=== PATIENT | male | born 1980 | race Caucasian/White ===

== ENCOUNTER 2016-05-04 16:34 | Inpatient (IN) | payer OTHER ==
[~2016-05-04 16:34] MED LIST: ABILIFY2 MG PO; LEVAQUIN500 MG PO
[2016-05-04 17:16] LABS: HEMOGLOBIN 15.6 gm/dl (14.0-17.5); RED BLOOD COUNT 4.83 M/UL (4.20-5.50); WHITE BLOOD COUNT 22.3 K/UL (4.5-11.0)
[2016-05-05 04:41] LABS: HEMOGLOBIN 13.1 gm/dl (14.0-17.5); RED BLOOD COUNT 4.14 M/UL (4.20-5.50); WHITE BLOOD COUNT 12.2 K/UL (4.5-11.0)
[2016-05-06 03:55] LABS: HEMOGLOBIN 11.3 gm/dl (14.0-17.5); WHITE BLOOD COUNT 10.3 K/UL (4.5-11.0)
[2016-05-06 04:01] LABS: RED BLOOD COUNT 3.63 M/UL (4.20-5.50)
[2016-05-06 17:50] LABS: BUN/CREATININE RATIO 15 (0-10)
[2016-05-07 04:13] LABS: BUN/CREATININE RATIO 11 (0-10)
== END 2016-05-09 11:16 | DRG 917 ==
LOC: ER1 16:34 → CCU 20:30 → ZEROF 20:30 → CCU 23:15
PROVIDERS: Emergency Medicine; Hospitalist; Internal Medicine; Internal Medicine Nephrology; ADMIT Internal Medicine
PROC: 5A1945Z Respiratory Ventilation, 24-96 Consecutive Hours (ICD-10-PCS; principal; 2016-05-04)
PROC: 0BH17EZ Insertion of Endotracheal Airway into Trachea, Via Natural or Artificial Opening (ICD-10-PCS; principal; 2016-05-04)
PROC: 3E0G76Z Introduction of Nutritional Substance into Upper GI, Via Natural or Artificial Opening (ICD-10-PCS; 2016-05-05)
DX: T43.621A Poisoning by amphetamines, accidental (unintentional), initial encounter (principal); J96.90 Respiratory failure, unspecified, unspecified whether with hypoxia or hypercapnia; G92 Toxic encephalopathy; F19.921 Other psychoactive substance use, unspecified with intoxication with delirium; M62.82 Rhabdomyolysis; N17.9 Acute kidney failure, unspecified; E87.2 Acidosis; E87.0 Hyperosmolality and hypernatremia; T83.098A Other mechanical complication of other urinary catheter, initial encounter; T46.2X1A Poisoning by other antidysrhythmic drugs, accidental (unintentional), initial encounter; R45.1 Restlessness and agitation; Y92.009 Unspecified place in unspecified non-institutional (private) residence as the place of occurrence of the external cause; E87.6 Hypokalemia; F17.210 Nicotine dependence, cigarettes, uncomplicated; Z88.0 Allergy status to penicillin
CPT/HCPCS: ECHO; 31500; 36415; 36600; 71010; 80048; 80053; 80307; 81001; 82550; 82553; 82803; 83874; 84484; 85025; 85027; 85610; 85730; 87086; 93005; 93306; 94002; 94003; 94640; 94664; 96374; 99285; A4628; C9113; G0480; J0330; J1650; J2060; J2250; J3360; J3480; J7030; J7070

== ENCOUNTER → 2020-06-24 | Outpatient (CLI) | payer SELFPAY | LOC: LAB 21:37 | DX: Z53.9 Procedure and treatment not carried out, unspecified reason (principal) | CPT/HCPCS: 80307; G0480 ==

== ENCOUNTER 2021-07-21 19:16 | Emergency (ER) | payer OTHER | END 2021-07-21 21:23 | disposition home or self-care (01) | LOC: ER1 19:16 | DX: S61.210A Laceration without foreign body of right index finger without damage to nail, initial encounter (principal); F17.290 Nicotine dependence, other tobacco product, uncomplicated; Z88.0 Allergy status to penicillin; W26.8XXA Contact with other sharp object(s), not elsewhere classified, initial encounter | CPT/HCPCS: 12001; 99282 ==